=== PATIENT | female | born 1975 | race Caucasian/White ===

== ENCOUNTER 2017-08-28 23:09 | Emergency (ER) | payer OTHER ==
[~2017-08-28] VITALS: Ht 165.1 cm; Wt 77.4 kg
[~2017-08-28 23:09] MED LIST: DICY10CA60 PO; DOCU-144 PO; LIDO30JE5 TOP; MAG-19 PO; ONDA4TAB35 PO
[2017-08-28 23:13] VITALS: Ht 165.1 cm; Wt 77.4 kg
[2017-08-29] MEDS ORDERED: IBUP-1542 PO (00:25)
[2017-08-29] MEDS ORDERED: BENZ100C70 PO (00:25)
[2017-08-29] MEDS ORDERED: AZIT250T94 PO (00:25)
--- NOTE | 2017-08-29 01:38 | ERD ---
ER Documentation Chief Complaint Chief Complaint cough and back of the neck pain for 5 days HPI Patient is a 41-year-old female presents to the ED for concerns of a cough and neck pain 5 days. Patient states initially drainage however now is becoming productive. Patient reports green sputum production. Patient also reports pain in the back of her neck only when coughing. Patient denies any pain at rest. Patient also reports a sore throat. Patient denies any drooling, trismus or hyperextension of her neck. Patient denies any fevers. Patient reports taking DayQuil and NyQuil with no alleviation of symptoms. Patient denies any ear pain, abdominal pain, nausea, vomiting or loss consciousness. Patient denies any chest pain or shortness of breath. ROS All systems reviewed and are negative except as per history of present illness. Medications Home Meds Active Scripts Ibuprofen* (Motrin*) 600 Mg Tab, 600 MG PO Q6, #15 TAB Prov:KALA CEDEÑO PA-C 08/29/17 Benzonatate* (Tessalon Perle*) 100 Mg Capsule, 100 MG PO Q8H Y for COUGH, #20 CAP Prov:KALA CEDEÑO PA-C 08/29/17 Azithromycin* (Zithromax*) 250 Mg Tablet, 250 MG PO .ZPACK DIRECTED, #6 TAB TAKE 500 MG (2 TABS) THE FIRST DAY THEN 250 MG (1 TAB) DAYS 2-5 Prov:KALA CEDEÑO PA-C 08/29/17 Ondansetron Hcl* (Zofran* ODT) 4 mg -ODT Tab.disper, 4 MG PO Q8 Y for NAUSEA AND /OR VOMITING, #30 TAB Prov:PIEDAD PETIT NP 10/29/15 Magaldrate/Simethicone* (Mylanta*) 355 Ml Susp, 30 ML PO QID Y for GASTROINTESTINAL UPSET, #1 BOTTLE Prov:PIEDAD PETIT NP 10/29/15 Dicyclomine Hcl* (Bentyl*) 10 Mg Capsule, 10 MG PO QID Y for abdominal cramping , #30 CAP Prov:PIEDAD PETIT NP 10/29/15 Lidocaine 2% Jelly* (Xylocaine 2% Jelly*) 1 Applic Jel, 1 APPLIC TOP BID, #1 TUB Prov:ARNALDO SILVA PA-C 07/26/15 Docusate Sodium* (Colace*) 100 Mg Capsule, 100 MG PO BID, #30 Prov:ARNALDO SILVA PA-C 07/26/15 Reported Medications [None] No Conflict Check 08/23/14 Allergies Allergies: Coded Allergies: codeine (Verified Allergy, Unknown, 10/29/15) PMhx/Soc History of Surgery: Yes (CHOLECYSTECTOMY, section, bilateral tubal ligation) Anesthesia Reaction: No Hx Neurological Disorder: No Hx Respiratory Disorders: Yes (ASTHMA) Hx Cardiac Disorders: No Hx Psychiatric Problems: No Hx Miscellaneous Medical Probl: Yes (GASTRITIS) Hx Alcohol Use: No Hx Substance Use: No Hx Tobacco Use: No Smoking Status: Never smoker Physical Exam Vitals Vital Signs Date Time Temp Pulse Resp B/P Pulse Ox O2 Delivery O2 Flow Rate FiO2 08/28/17 23:13 97.8 77 20 135/81 99 Physical Exam GENERAL: Well-developed, well-nourished female. Appears in no acute distress. No abdominal retractions. No nasal flaring. No tripoding. HEAD: Normocephalic, atraumatic. No deformities or ecchymosis. EYE: Pupils equal, round, and reactive to light. EOMs intact. No conjunctival erythema. No eye discharge. ENT: External ear without any masses or tenderness. TM visualized bilaterally, non-erythematous, non-bulging. Nasal mucosa pink with no discharge. Oropharynx is erythematous without any tonsillar erythema or exudates. No uvula deviation. No kissing tonsils. NECK: Supple. Normal range motion of the neck. No cervical midline tenderness. LUNG: Clear to auscultation bilaterally. No rhonchi, wheezing, rales or coarse breath sounds. HEART: Regular rate and rhythm. No murmurs, rubs or gallops. EXTREMITIES: Equal pulses bilaterally. No peripheral clubbing, cyanosis or edema. No unilateral leg swelling. NEUROLOGIC: Alert and oriented to person, place and time. Moving all four extremities. 5/5 strength in all extremities. Normal speech. Steady gait. SKIN: Normal color. Warm and dry. No rashes or lesions. Procedures/MDM MEDICAL DECISION MAKING: This is a 41-year-old female presents to the ED for cough 5 days. Vital signs were reviewed. Patient was afebrile. Patient was not hypoxic. ENT exam was normal. Lung exam was normal. Given that patient has had symptoms now for 5 days we will treat the patient with a course of antibiotics. Given these findings, the patient's presentation is most consistent with acute bronchitis. Low suspicion pneumonia, meningitis, sinusitis, otitis externa, acute otitis media, strep pharyngitis, epiglottitis or peritonsillar abscess. Low suspicion for cervical spine fracture. PRESCRIPTIONS: Ibuprofen, Z-Willian, Tessalon Perles DISCHARGE: At this time, patient is stable for discharge and outpatient management. Supportive therapies such as OTC throat lozenges, salt water gurgles, popsicles and jello discussed. I have instructed the patient to follow-up with his/her primary care physician in 1-2 days. I have instructed the patient to promptly return to the ER for any new or worsening symptoms including increased pain, swelling, fever, nausea, vomiting, weakness or difficulty breathing. The patient and/or family expressed understanding of and agreement with this plan. All questions were answered. Home care instructions were provided. Disclaimer: Inadvertent spelling and grammatical errors are likely due to EHR/ dictation software use and do not reflect on the overall quality of patient care. Also, please note that the electronic time recorded on this note does not necessarily reflect the actual time of the patient encounter. Departure Diagnosis: Primary Impression: Acute bronchitis Bronchitis organism: unspecified organism Qualified Code: J20.9 - Acute bronchitis, unspecified organism Patient Instructions: Acute Bronchitis Referrals: [facility] (PCP) Additional Instructions: Call your primary care doctor TOMORROW for an appointment during the next 1-2 days.See the doctor sooner or return here if your condition worsens before your appointment time. KALA CEDEÑO PA-C Aug 29, 2017 01:38
[2017-08-29 01:43] VITALS: PULSE 71; RESP 24; TEMP 98.8
[2017-08-30] MEDS ORDERED: ALBU8.5H3 INH (00:22)
[2017-08-30] MEDS ORDERED: PRED20TA PO (00:22)
== END 2017-08-29 01:40 | disposition home or self-care (01) ==
LOC: FTE 23:09
DX: J20.9 Acute bronchitis, unspecified (principal); J45.909 Unspecified asthma, uncomplicated
CPT/HCPCS: 99284

== ENCOUNTER 2017-08-29 23:03 | Emergency (ER) | payer OTHER ==
[~2017-08-29] VITALS: Ht 165.1 cm; Wt 78.5 kg
[~2017-08-29 23:03] MED LIST changes: +AZIT250T94 PO; +BENZ100C70 PO; +IBUP-1542 PO
[2017-08-29 23:06] VITALS: Ht 165.1 cm; Wt 78.5 kg
[2017-08-30] MEDS ORDERED: ALBUTEROL 0.083% (NEB) 2.5 MG/3 ML AMP NEB STA (00:17)
[2017-08-30] MEDS ORDERED: predniSONE 20 MG TAB PO STA (00:17)
[2017-08-30] MEDS ORDERED: IPRATROPIUM (NEB) 0.5 MG/2.5 ML AMP NEB STA (00:17)
[2017-08-30] MEDS ORDERED: ALBU8.5H3 INH (00:22)
[2017-08-30] MEDS ORDERED: PRED20TA PO (00:22)
--- NOTE | 2017-08-30 00:27 | ERD ---
ER Documentation Chief Complaint Chief Complaint PT IN C/O PRODUCTIVE "COUGH". PT SEEN YESTERDAY FOR COUGH HPI Patient is a 41-year-old female presents to the ED for concerns of a cough for 6 days. Patient was seen by myself yesterday. Patient states her cough was initially dry have not become productive with green sputum production. Patient states she did start the Z-Willian however she feels no alleviation of symptoms. Patient requesting albuterol inhaler and breathing treatment given that this is helped in the past. Patient continues to deny fevers and chills. Patient denies any chest pain, shortness breath, nausea, vomiting, left upper extremity pain or loss consciousness. ROS All systems reviewed and are negative except as per history of present illness. Medications Home Meds Active Scripts Albuterol Sulfate* (Proair HFA*) 8.5 Gm Hfa.aer.ad, 2 PUFF INH Q4, #1 INHALER Prov:KALA CEDEÑO PA-C 08/30/17 Prednisone* (Prednisone*) 20 Mg Tab, 40 MG PO DAILY for 4 Days, TAB Prov:KALA CEDEÑO PA-C 08/30/17 Ibuprofen* (Motrin*) 600 Mg Tab, 600 MG PO Q6, #15 TAB Prov:KALA CEDEÑO PA-C 08/29/17 Benzonatate* (Tessalon Perle*) 100 Mg Capsule, 100 MG PO Q8H Y for COUGH, #20 CAP Prov:KALA CEDEÑO PA-C 08/29/17 Azithromycin* (Zithromax*) 250 Mg Tablet, 250 MG PO .ViolaPACK DIRECTED, #6 TAB TAKE 500 MG (2 TABS) THE FIRST DAY THEN 250 MG (1 TAB) DAYS 2-5 Prov:KALA CEDEÑO PA-C 08/29/17 Ondansetron Hcl* (Zofran* ODT) 4 mg -ODT Tab.disper, 4 MG PO Q8 Y for NAUSEA AND /OR VOMITING, #30 TAB Prov:PIEDAD PETIT NP 10/29/15 Magaldrate/Simethicone* (Mylanta*) 355 Ml Susp, 30 ML PO QID Y for GASTROINTESTINAL UPSET, #1 BOTTLE Prov:PIEDAD PETIT NP 10/29/15 Dicyclomine Hcl* (Bentyl*) 10 Mg Capsule, 10 MG PO QID Y for abdominal cramping , #30 CAP Prov:MARISABELPIEDAD MAJena Taylor. [employer] 10/29/15 Lidocaine 2% Jelly* (Xylocaine 2% Jelly*) 1 Applic Jel, 1 APPLIC TOP BID, #1 TUB Prov:ARNALDO SILVA PA-C 07/26/15 Docusate Sodium* (Colace*) 100 Mg Capsule, 100 MG PO BID, #30 Prov:ARNALDO SILVA PA-C 07/26/15 Reported Medications [None] No Conflict Check 08/23/14 Allergies Allergies: Coded Allergies: codeine (Verified Allergy, Unknown, 10/29/15) PMhx/Soc History of Surgery: Yes (CHOLECYSTECTOMY, section, bilateral tubal ligation) Anesthesia Reaction: No Hx Neurological Disorder: No Hx Respiratory Disorders: Yes (ASTHMA) Hx Cardiac Disorders: No Hx Psychiatric Problems: No Hx Miscellaneous Medical Probl: Yes (GASTRITIS) Hx Alcohol Use: No Hx Substance Use: No Hx Tobacco Use: No Smoking Status: Never smoker Physical Exam Vitals Vital Signs Date Time Temp Pulse Resp B/P Pulse Ox O2 Delivery O2 Flow Rate FiO2 08/30/17 00:40 87 24 99 21 08/29/17 23:06 98.1 75 18 152/85 99 Physical Exam GENERAL: Well-developed, well-nourished female. Appears in no acute distress. No abdominal retractions, no nasal flaring, no tripoding. HEAD: Normocephalic, atraumatic. EYES: Pupils are equally reactive bilaterally. EOMs grossly intact. No conjunctival erythema. ENT: Moist mucous membranes. No uvula deviation. No kissing tonsils. NECK: Supple. No meningismus. Normal range of motion of the neck. LUNG: Clear to auscultation bilaterally. No rhonchi, wheezing, rales or coarse breath sounds. HEART: Regular rate and rhythm. No murmurs, rubs or gallops. EXTREMITIES: Equal pulses bilaterally. No peripheral clubbing, cyanosis or edema. No unilateral leg swelling. NEUROLOGIC: Alert and oriented. Moving all four extremities without any difficulty. Normal speech. Steady gait. SKIN: Normal color. Warm and dry. No rashes or lesions. Results 24 hrs Current Medications Medications (Trade) Dose Ordered Sig/Leana Route PRN Reason Start Time Stop Time Status Last Admin Dose Admin Albuterol (Proventil 0.083% (Neb)) 5 mg ONCE STAT NEB 08/30/17 00:17 08/30/17 00:18 DC 08/30/17 00:40 Ipratropium Leighton (Atrovent 0.02% (Neb)) 0.5 mg ONCE STAT NEB 08/30/17 00:17 08/30/17 00:18 DC 08/30/17 00:40 Prednisone (Prednisone) 40 mg ONCE STAT PO 08/30/17 00:17 08/30/17 00:18 DC 08/30/17 00:38 Procedures/MDM ED COURSE: The patient was stable throughout ED course. I kept the patient and/or family informed of laboratory and diagnostic imaging results throughout the ED course. DIAGNOSTIC IMAGING: Read by radiologist. Patient: EVAN DORSEY : 1975 Age: 41 Sex: F MR #: [id number] DOS: 08/30/17 0018 Ordering MD: KALA CEDEÑO PA-C Location: [facility] Room/Bed: PROCEDURE: CHEST - 1 VIEW CLINICAL INDICATION: 41-year-old female with cough. TECHNIQUE: A single frontal AP semi-erect portable view of the chest was performed. The images were reviewed on a PACS workstation. COMPARISON: CT abdomen/pelvis October 29, 2015. FINDINGS: The cardiomediastinal silhouette has a normal appearance. There is no evidence for an infiltrate. There is no evidence for congestive heart failure. There is no evidence for pneumothorax. Surgical clips are seen within the right upper quadrant from prior cholecystectomy. The osseous structures are intact. IMPRESSION: 1. No evidence for active cardiopulmonary disease. 2. Status post cholecystectomy. .Humza Calvert MD, Date Time Electronically viewed and signed by .Humza Calvert MD, on 08/30/2017 01:41 .M/ CC: KALA CEDEÑO PA-C PROCEDURES: None. MEDICATIONS GIVEN: Prednisone, albuterol, ipratropium Patient tolerated medication well with no adverse reactions. MEDICAL DECISION MAKING: This is a 41-year-old female presents to the ED for cough 6 days. Patient was seen by myself yesterday and at that time prescribed a Z-Willian, Tessalon Perles and ibuprofen. Patient states she started medication however she feels no alleviation of symptoms. Patient requesting eating treatment and albuterol inhaler given as helped in the past. Vital signs were reviewed. Patient was afebrile. Patient was not hypoxic. ENT exam was normal. Lung exam was normal. Patient was given a breathing treatment as well as prednisone here in the ED. Upon reexamination, patient reported improvement in symptoms. Chest x-ray was unremarkable. At this time, patient's presentation is most consistent with acute bronchitis. Patient was advised to continue Z-Willian, Tessalon Perles and ibuprofen. In addition patient will be given albuterol inhaler and a 4 day course of prednisone. Low suspicion CHF, pneumonia, pneumothorax, meningitis, sinusitis, otitis externa, acute otitis media, strep pharyngitis, epiglottitis or peritonsillar abscess. Low suspicion for cervical spine fracture. PRESCRIPTIONS: Prednisone, albuterol inhaler Patient advised to continue ibuprofen, Z-Willian, Tessalon Perles DISCHARGE: At this time, patient is stable for discharge and outpatient management. Supportive therapies such as OTC throat lozenges, salt water gurgles, popsicles and jello discussed. I have instructed the patient to follow-up with his/her primary care physician in 1-2 days. I have instructed the patient to promptly return to the ER for any new or worsening symptoms including increased pain, swelling, fever, nausea, vomiting, weakness or difficulty breathing. The patient and/or family expressed understanding of and agreement with this plan. All questions were answered. Home care instructions were provided. Disclaimer: Inadvertent spelling and grammatical errors are likely due to EHR/ dictation software use and do not reflect on the overall quality of patient care. Also, please note that the electronic time recorded on this note does not necessarily reflect the actual time of the patient encounter. Departure Diagnosis: Primary Impression: Acute bronchitis Bronchitis organism: unspecified organism Qualified Code: J20.9 - Acute bronchitis, unspecified organism Condition: Stable Patient Instructions: Acute Bronchitis Additional Instructions: Continue medication prescribed to you yesterday including Z-Willian, Tessalon Perles , ibuprofen. Use Inhaler as needed. Call your primary care doctor TOMORROW for an appointment during the next 1-2 days.See the doctor sooner or return here if your condition worsens before your appointment time. KALA CEDEÑO PA-C Aug 30, 2017 00:27
--- NOTE | 2017-08-30 01:41 | RADRPT ---
PROCEDURE: CHEST - 1 VIEW CLINICAL INDICATION: 41-year-old female with cough. TECHNIQUE: A single frontal AP semi-erect portable view of the chest was performed. The images we re reviewed on a PACS workstation. COMPARISON: CT abdomen/pelvis October 29, 2015. FINDINGS: The cardiomediastinal silhouette has a normal appearance. There is no evidence for an infiltrate. There is no evidence for congestive heart failure. There is no evidence for pneumothorax. Surgical c lips are seen within the right upper quadrant from prior cholecystectomy. The osseous structures are intact. IMPRESSION: 1. No evidence for active cardiopulmonary disease. 2. Status post cholecystectomy. .Humza Calvert MD, MD Date Time Electronically viewed and signed by .Humza Calvert MD, on 08/30/2017 01:41 .Kena/
[2017-08-30 02:01] VITALS: BP 137/78; PULSE 72; RESP 18; TEMP 98.3
== END 2017-08-30 02:05 | disposition home or self-care (01) ==
LOC: FTE 23:03
DX: J20.9 Acute bronchitis, unspecified (principal); J45.909 Unspecified asthma, uncomplicated
CPT/HCPCS: 71010; 94664; J7512; Z7502; Z7610

== ENCOUNTER 2019-04-23 21:50 | Emergency (ER) | payer OTHER ==
[~2019-04-23] VITALS: Ht 162.6 cm; Wt 76.4 kg
[~2019-04-23 21:50] MED LIST changes: +ALBU8.5H8 INH; +AZIT250T PO; -AZIT250T94 PO; +BENZ-6 PO; -BENZ100C70 PO; +DICY10CA40 PO; -DICY10CA60 PO; +PRED20TA PO
[2019-04-23 21:54] VITALS: Ht 162.6 cm; Wt 76.4 kg
[2019-04-24] MEDS ORDERED: ONDANSETRON (ODT) 4 MG TAB ODT STA (01:36)
[2019-04-24] MEDS ORDERED: KETOROLAC 30 MG INJ IM STA (01:36)
[2019-04-24] MEDS ORDERED: MECLIZINE 12.5 MG TAB PO ONE (02:00)
[2019-04-24] MEDS ORDERED: SUMA5SPR NS (02:20)
[2019-04-24] MEDS ORDERED: ONDA4TAB14 PO (02:20)
[2019-04-24] MEDS ORDERED: BUTA1CAP38 PO (02:20)
[2019-04-24] MEDS ORDERED: IBUP800T48 PO (02:20)
[2019-04-24] MEDS ORDERED: MECL12.574 PO (02:20)
--- NOTE | 2019-04-24 02:32 | ERD ---
ER Documentation Chief Complaint Chief Complaint OLSEN X'S 1 WEEK HPI This is a 43-year-old female patient presents emergency room with complaint of migraine headache x1 week. Patient states she has had migraine headaches since she was a child and this is similar to the headache pain that she is used to. States her last migraine headache was one year ago. States 8 days ago she started to feel pressure in her head with some left sided head pain and numbness. Pain starts in her left judaism and radiates down into left neck. Describes pain as an intermittent pressure. no tearing, denies blurred or double vision, + photophobia, + phonophobia, - aura. +intermittent dizziness, +nausea, -vomiting. Patient has tried Imitrex in the past, states the inhaled Imitrex works the best for her however she has not had a prescription for it for over a year. She has been using ibuprofen 600 mg without relief. No chronic medical problems History and physical exam and plan of care discussion performed via occupational therapy technician services ROS All systems reviewed and are negative except as per history of present illness. Medications Home Meds Active Scripts Ondansetron (Ondansetron Odt) 4 Mg Tab.rapdis, 4 MG PO Q6H PRN for NAUSEA AND/OR VOMITING for 5 Days, #10 TAB Prov:RAFAEL DOWELL NP 04/24/19 Ibuprofen* (Motrin*) 800 Mg Tab, 800 MG PO Q6 for headache for 10 Days, #30 TAB Prov:RAFAEL DOWELL NP 04/24/19 Meclizine Hcl* (Antivert*) 12.5 Mg Tab, 25 MG PO Q6H PRN for DIZZINESS for 5 Days, #20 TAB Prov:RAFAEL DOWELL NP 04/24/19 Psrsemqdln-Nhfkneldwttuv-Zkognayz* (Fioricet*) 50-300-40 Mg Capsule, 1 CAP PO Q4H PRN for HEADACHE for 5 Days, #10 CAP Prov:RAFAEL DOWELL NP 04/24/19 Sumatriptan (Imitrex) 5 Mg [place], 5 MG NS DAILY PRN for HEADACHE for 5 Days, #1 SPRAY Single spray in one nostril. May be repeated in 2 hours, not to exceed 8 sprays in 24-hours or 5 episodes per month Prov:RAFAEL DOWELL NP 04/24/19 Albuterol Sulfate* (Proair HFA*) 8.5 Gm Hfa.aer.ad, 2 PUFF INH Q4, #1 INHALER Prov:GALAKALA AYALA 08/30/17 Prednisone* (Prednisone*) 20 Mg Tab, 40 MG PO DAILY for 4 Days, TAB Prov:UMAIR CEDEÑOYULIET AYALA 08/30/17 Ibuprofen* (Motrin*) 600 Mg Tab, 600 MG PO Q6, #15 TAB Prov:GALAKALA AYALA 08/29/17 Benzonatate* (Tessalon Perle*) 100 Mg Capsule, 100 MG PO Q8H PRN for COUGH, #20 CAP Prov:GALAKALA AYALA 08/29/17 Azithromycin* (Zithromax*) 250 Mg Tablet, 250 MG PO .ZPACK DIRECTED, #6 TAB TAKE 500 MG (2 TABS) THE FIRST DAY THEN 250 MG (1 TAB) DAYS 2-5 Prov:GALAKALA AYALA 08/29/17 Ondansetron Hcl* (Zofran* ODT) 4 mg -ODT Tab.disper, 4 MG PO Q8 PRN for NAUSEA AND/OR VOMITING, #30 TAB Prov:PIEDAD PETIT LEAD CASE MANAGER 10/29/15 Magaldrate/Simethicone* (Mylanta*) 355 Ml Susp, 30 ML PO QID PRN for GASTROINTESTINAL UPSET, #1 BOTTLE Prov:PIEDAD PETIT LEAD CASE MANAGER 10/29/15 Dicyclomine HCl (Dicyclomine HCl) 10 Mg Capsule, 10 MG PO QID PRN for abdominal cramping, #30 CAP Prov:PIEDAD PETIT LEAD CASE MANAGER 10/29/15 Lidocaine 2% Jelly* (Xylocaine 2% Jelly*) 1 Applic Jel, 1 APPLIC TOP BID, #1 TUB Prov:ARNALDO SILVA PA-C 07/26/15 Docusate Sodium* (Colace*) 100 Mg Capsule, 100 MG PO BID, #30 Prov:ARNALDO SILVA PA-C 07/26/15 Reported Medications [None] No Conflict Check 08/23/14 Allergies Allergies: Coded Allergies: codeine (Verified Allergy, Unknown, 10/29/15) PMhx/Soc History of Surgery: Yes (CHOLECYSTECTOMY, section, bilateral tubal ligation) Anesthesia Reaction: No Hx Neurological Disorder: No Hx Respiratory Disorders: Yes (ASTHMA) Hx Cardiac Disorders: No Hx Psychiatric Problems: No Hx Miscellaneous Medical Probl: Yes (GASTRITIS) Hx Alcohol Use: No Hx Substance Use: No Hx Tobacco Use: No Smoking Status: Never smoker FmHx Family History: No diabetes, No coronary disease, No other Physical Exam Vitals Vital Signs Date Temp Pulse Resp B/P (MAP) Pulse Ox O2 O2 Flow FiO2 Time Delivery Rate 04/23/19 98.9 84 18 169/94 99 21:54 (119) Physical Exam Const: No acute distress Head: No bruising, no swelling, no hematoma, no crepitus Eyes: Normal Conjunctiva. PERRL, EOMI- +dizziness with right lateral gaze, no nystagmus ENT: Normal External Ears, Nose and Mouth. Pharynx pink, moist. Neck: Full range of motion. No meningismus. No cervical spinal tenderness. No lymphadenopathy Resp: Clear to auscultation bilaterally, no rales, rhonchi. Chest rise equal bilaterally. Cardio: Regular rate and rhythm, no murmurs Abd: Soft, non tender, non distended. Normal bowel sounds. No bruising. Skin: No petechiae or rashes, no abrasions, no hematomas. Back: No midline or flank tenderness, no point tenderness to spine, FROM Ext: No cyanosis, or edema, no deformities Neur: Awake and alert, CN II-XII intact, steady gait, clear speech, no pronator drift, equal smile, BL manager neonatal 5/5, sensation intact BL, negative Romberg, Psych: Normal Mood and Affect Results 24 hrs Laboratory Tests Test 04/24/19 01:51 Bedside Urine pH (LAB) 6.5 Bedside Urine Protein (LAB) Negative Bedside Urine Glucose (UA) Negative Bedside Urine Ketones (LAB) Negative Bedside Urine Blood Negative Bedside Urine Nitrite (LAB) Negative Bedside Urine Leukocyte Esterase (L Negative POC Beta HCG, Qualitative NEGATIVE Current Medications Medications Dose Sig/Leana Start Time Status Last (Trade) Ordered Route PRN Stop Time Admin Dose Reason Admin Meclizine 25 mg ONCE ONCE 04/24/19 DC 04/24/19 HCl PO 02:00 04/24/19 01:59 (Antivert) 02:01 Ketorolac 30 mg ONCE STAT 04/24/19 DC 04/24/19 Tromethamine IM 01:36 04/24/19 01:59 (Toradol) 01:39 Ondansetron 4 mg ONCE STAT 04/24/19 DC 04/24/19 HCl (Zofran ODT 01:36 04/24/19 01:59 Odt) 01:39 Departure Diagnosis: Primary Impression: Migraine Migraine type: without aura Status migrainosus presence: without status migrainosus Intractability: not intractable Qualified Codes: G43.009 - Migraine without aura, not intractable, without status migrainosus Condition: Stable Patient Instructions: What Are Migraine and Tension Headaches? Referrals[facility] Usted se olsen hecho un examen mdico de control que le indica que no est en kulwinder condicin que requiera tratamiento urgente en el Departamento de Emergencia. Un estudio ms profundo y el tratamiento de castro condicin pueden esperar sin ningn riesgo hasta que usted sea atendida/o en el consultorio de castro mdico o kulwinder clnica. Es responsabilidad suya arreglar kulwinder edson para el seguimiento del ira. MANEJO DE CONDICIONES NO URGENTES EN EL FUTURO 1) Si usted tiene un mdico de atencin primaria: Usted debera llamar a castro mdico de atencin primaria antes de venir al departamento de emergencia. Despus de las horas de consultorio, castro doctor o castro asociado/a est disponible por telfono. El mdico o enfermero de sherman en el servicio telefnico puede asesorarle por [place] medio para atender el problema, o ira contrario se puede programar kulwinder edson. 2) Si usted no tiene un mdico de atencin primaria: Llame al mdico o clnica de referencia que aparece abajo frank las horas de consultorio para hacer kulwinder edson para que le vean. CLINICAS: [facility] 042 [phone] [id number] [facility] [phone] [address] [facility] [phone] [address] [place] [id number] [phone] [facility] [phone] [address] [facility] [phone] [address] [facility] () Usted se olsen hecho un examen mdico de control que le indica que no est en kulwinder condicin que requiera tratamiento urgente en el Departamento de Emergencia. Un estudio ms profundo y el tratamiento de castro condicin pueden esperar sin ningn riesgo hasta que usted sea atendida/o en el consultorio de castro mdico o kulwinder clnica. Es responsabilidad suya arreglar kulwinder edson para el seguimiento del ira. MANEJO DE CONDICIONES NO URGENTES EN EL FUTURO 1) Si usted tiene un mdico de atencin primaria: Usted debera llamar a castro mdico de atencin primaria antes de venir al departamento de emergencia. Despus de las horas de consultorio, castro doctor o castro asociado/a est disponible por telfono. El mdico o enfermero de sherman en el servicio telefnico puede asesorarle por [place] [facility] para atender el problema, o ira contrario se puede programar kulwinder edson. 2) Si usted no tiene un mdico de atencin primaria: Llame al mdico o condado institucions de referencia que aparece abajo frank las horas de consultorio para hacer kulwinder edson para que le vean. SI USTED NO PUEDE PAGAR PARA TIMOTEO UN MEDICO puede ir a: [facility] [address] [place] [address] [facility] [address] [place] [address] [facility] [address] [place] [address] [facility] [address] [place] [address] Additional Instructions: Thank you very much for allowing us to participate in your care. Your health and safety is our top priority at [facility]. Call your primary care doctor TOMORROW for an appointment during the next 2-4 days and bring all the information and medications prescribed. Have prescriptions filled and follow precisely the directions on the label. If the symptoms get worse and your provider is unavailable, return to the Emergency Department immediately. FOLLOW-UP WITH YOUR PRIMARY CARE PROVIDER EARLY NEXT WEEK FOR REEVALUATION OF TREATMENT PLAN AND POSSIBLE REFERRAL FOR NEUROLOGY INCREASE HYDRATION, REST, USE ZOFRAN NEEDED FOR NAUSEA, IBUPROFEN FOR PAIN, MECLIZINE FOR DIZZINESS. YOU HAVE BEEN PRESCRIBED WITH 2 RESCUE MEDICATIONS ONE IS IMITREX THAT YOU HAVE USED BEFORE USE 1 NASAL SPRAY NEEDED. YOU HAVE ALSO BEEN PRESCRIBED FIORICET WHICH IS A RESCUE MEDICATION FOR YOUR HEADACHES THAT WILL CAUSE DROWSINESS. DO NOT OPERATE A CAR, DRINK ALCOHOL, OR WATCH SMALL CHILDREN WHILE TAKING THIS MEDICATION. RETURN TO THE EMERGENCY ROOM IMMEDIATELY FOR CHANGING OR WORSENING OF YOUR SYMPTOMS RAFAEL DOWELL NP Apr 24, 2019 02:32
[2019-04-24 02:40] VITALS: BP 150/93; PULSE 63; RESP 20
== END 2019-04-24 02:51 | disposition home or self-care (01) ==
LOC: FTE 21:50
DX: G43.009 Migraine without aura, not intractable, without status migrainosus (principal); J45.909 Unspecified asthma, uncomplicated
CPT/HCPCS: 81003; 81025; 96372; J1885; Z7502; Z7610

== ENCOUNTER 2019-06-06 08:03 | Day surgery (SDC) | payer OTHER ==
[2019-06-03 17:55] VITALS: Ht 162.6 cm; Wt 77.3 kg
[~2019-06-06] VITALS: Ht 162.6 cm; Wt 77.3 kg
[~2019-06-06 08:03] MED LIST changes: +BUTA1CAP38 PO; +IBUP800T48 PO; +MECL12.574 PO; +MICO45CR68 VAG; +ONDA4TAB14 PO; +SUMA5SPR NS
[2019-06-06] MEDS ORDERED: CEFAZOLIN 2 GM/50 ML (PMX) 50 ML IVPB ONE (09:00)
[2019-06-06] MEDS ORDERED: SOD CHLORIDE 0.9% 1,000 ML IV SCH (09:00)
--- NOTE | 2019-06-06 09:03 | HPN ---
Date/Time of Note Date/Time of Note DATE: 06/06/19 TIME: 09:02 Interval H&P Admission Note Pt. seen H&P reviewed: Systems changes noted below Patient complaining of vaginal itching, burning, and dysuria starting 1 day ago. In light of above and the fact that we need to use a prosthetic mesh for her hernia repair I would recommend cancelling the case and rescheduling once she has recovered. Will send UA and UCx. Patient understands. MALACHI EHRNANDEZ MD Jun 06, 2019 09:03
== END 2019-06-06 09:59 | disposition home or self-care (01) ==
LOC: SDS 08:03
PROVIDERS: ATTEND Surgery
DX: K40.90 Unilateral inguinal hernia, without obstruction or gangrene, not specified as recurrent (principal); Z53.8 Procedure and treatment not carried out for other reasons
CPT/HCPCS: 81001; 87086; J0690